=== PATIENT | male | born 1950 | race Caucasian/White ===

== ENCOUNTER → 2023-06-08 | Outpatient (CLI) | payer BC, MEDICARE ==
[~2023-06-08] MED LIST: IOHEXOL 350 MG/ML 100ML INFUS..BTL IV ONE; METOPROLOL TARTRATE 1 MG/ML 5ML VIAL IV ONE
== END | disposition home or self-care (01) ==
LOC: RAH 08:05
PROVIDERS: ATTEND Internal Medicine Cardiovascular Disease
DX: I73.9 Peripheral vascular disease, unspecified (principal); R06.09 Other forms of dyspnea; I25.10 Atherosclerotic heart disease of native coronary artery without angina pectoris
CPT/HCPCS: 75574; J3490; Q9967

== ENCOUNTER → 2023-07-21 | Outpatient (CLI) | payer BC, MEDICARE ==
[2023-07-21] MEDS: REGADENOSON 0.4 MG/5 ML PF SYG IVP ONE (14:40)
== END | disposition home or self-care (01) ==
LOC: SHCH 07-18 08:32
PROVIDERS: ATTEND Internal Medicine Cardiovascular Disease
DX: I25.10 Atherosclerotic heart disease of native coronary artery without angina pectoris (principal); I87.2 Venous insufficiency (chronic) (peripheral)
CPT/HCPCS: 78452; 96374; 93017; J2785; A9500 ×2

== ENCOUNTER → 2023-10-19 | Outpatient (CLI) | payer MEDICARE, BC ==
[~2023-10-19] VITALS: Ht 190.5 cm; Wt 104.6 kg
[~2023-10-19] MED LIST changes: +AEC81 PO; +ATOR40TA69 PO; +FLUT1BLS3 IH; -IOHEXOL 350 MG/ML 100ML INFUS..BTL IV ONE; +LISI10TA24 PO; -METOPROLOL TARTRATE 1 MG/ML 5ML VIAL IV ONE; +OXYC5TAB3 PO
[2023-10-19 14:10] LABS: BASOPHILS # (AUTO) 0.05 K/uL (0.00-0.20); BASOPHILS % (AUTO) 0.6 % (0.0-5.0); EOSINOPHILS % (AUTO) 2.3 % (0.0-8.0); HEMATOCRIT 29.2 % (42-54); IMMATURE GRANULOCYTE ABSOLUTE 0.03 K/uL (0-1); LYMPHOCYTES # (AUTO) 1.4 K/uL (1.0-4.8); LYMPHOCYTES % (AUTO) 16.5 % (21.0-51.0); MEAN CORPUSCULAR HEMOGLOBIN 25.5 pg (27.0-33.0); MEAN CORPUSCULAR HGB CONC 30.8 g/dL (32.0-36.0); MEAN CORPUSCULAR VOLUME 82.7 fL (79-99); MONOCYTES # (AUTO) 0.7 K/uL (0.1-1.0); NEUTROPHILS # (AUTO) 6.3 K/uL (1.8-7.7); NEUTROPHILS % (AUTO) 72.3 % (40.0-77.0); PLATELET COUNT (AUTO) 209 K/uL (130-400); RED BLOOD CELL COUNT(AUTO) 3.53 MIL/uL (4.50-6.20); RED CELL DISTRIBUTION WIDTH 16.1 % (11.0-15.5); WHITE BLOOD COUNT (AUTO) 8.7 K/uL (4.8-10.8)
[2023-10-19 14:12] VITALS: BP 119/64; PULSE 77; RESP 18; TEMP 98.6
[2023-10-19 14:23] LABS: INR 1.01 (0.85-1.15); PROTHROMBIN TIME 10.9 SEC (9.6-11.6)
[2023-10-19 14:24] LABS: PARTIAL THROMBOPLASTIN TIME 25.8 SEC (26.3-35.5)
[2023-10-19 14:26] LABS: APPEARANCE,URINE CLEAR (CLEAR); BILIRUBIN,URINE NEGATIVE (NEGATIVE); COLOR,URINE YELLOW (YELLOW); GLUCOSE, URINE (UA) NEGATIVE (NEGATIVE); KETONES,URINE 5 mg/dL (NEGATIVE); LEUKOCYTE ESTERASE ,URINE NEGATIVE Leu/uL (NEGATIVE); NITRATE,URINE NEGATIVE (NEGATIVE); OCCULT BLOOD,URINE NEGATIVE (NEGATIVE); PROTEIN,URINE 20 mg/dL (NEGATIVE)
[2023-10-19 14:29] LABS: CREATININE 0.8 mg/dL (0.5-1.3)
[2023-10-19 14:34] LABS: ADD UA MICROSCOPIC YES
[2023-10-19 14:38] LABS: MUCUS,URINE FEW LPF (None Seen)
[2023-10-19 14:44] LABS: B-TYPE NATRIURETIC PEPTIDE 35 pg/mL (0-100)
== END | disposition home or self-care (01) ==
LOC: DAH 10:00 → EDSTATUS 13:00
PROVIDERS: ATTEND Internal Medicine Cardiovascular Disease
DX: Z01.818 Encounter for other preprocedural examination (principal); I25.110 Atherosclerotic heart disease of native coronary artery with unstable angina pectoris; R06.02 Shortness of breath
CPT/HCPCS: 36415; 71045; 80048; 81001; 83880; 85025; 85610; 85730; 93005

== ENCOUNTER 2024-03-13 05:57 | Day surgery (SDC) | payer MEDICARE, BC ==
[2024-03-11 13:47] LABS: BASOPHILS # (AUTO) 0.06 K/uL (0.00-0.20); BASOPHILS % (AUTO) 0.8 % (0.0-5.0); EOSINOPHILS % (AUTO) 2.8 % (0.0-8.0); HEMATOCRIT 35.7 % (42-54); IMMATURE GRANULOCYTE ABSOLUTE 0.03 K/uL (0-1); LYMPHOCYTES # (AUTO) 1.2 K/uL (1.0-4.8); LYMPHOCYTES % (AUTO) 16.7 % (21.0-51.0); MEAN CORPUSCULAR HEMOGLOBIN 29.7 pg (27.0-33.0); MEAN CORPUSCULAR HGB CONC 32.5 g/dL (32.0-36.0); MEAN CORPUSCULAR VOLUME 91.5 fL (79-99); MONOCYTES # (AUTO) 0.6 K/uL (0.1-1.0); MONOCYTES % (AUTO) 8.5 % (3.0-13.0); NEUTROPHILS % (AUTO) 70.8 % (40.0-77.0); PLATELET COUNT (AUTO) 205 K/uL (130-400); WHITE BLOOD COUNT (AUTO) 7.1 K/uL (4.8-10.8)
[2024-03-11 13:57] LABS: CREATININE 0.9 mg/dL (0.5-1.3); POTASSIUM 4.6 mmol/L (3.5-5.1)
[2024-03-11 13:58] LABS: INR <= 0.93 (0.85-1.15); PROTHROMBIN TIME 10.5 SEC (9.6-11.6)
[2024-03-11 13:59] LABS: PARTIAL THROMBOPLASTIN TIME 26.8 SEC (26.3-35.5)
[2024-03-11 14:02] VITALS: BP 120/66; PULSE 72; RESP 18; TEMP 97.3
--- NOTE | 2024-03-11 14:18 | EKG ---
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
--- NOTE | 2024-03-11 15:18 | HMCIMG ---
CHEST 1VW REASON: R COMPARISON: 11/08/2023 FINDINGS: Single view of the chest was obtained. Lungs are clear. Heart size is normal. There is no pulmonary vascular congestion. Mediastinum and bony thorax appear unremarkable. IMPRESSION: 1. Normal single view chest x-ray.
[2024-03-13] VITALS (11 sets, daily range): BP systolic 113–130; BP diastolic 57–70; PULSE 57–77; RESP 9–22; TEMP 97.4–97.6
[~2024-03-13] VITALS: Ht 190.5 cm; Wt 101.8 kg
[~2024-03-13 05:57] MED LIST changes: +BORON PO; +FERR324T PO; -FLUT1BLS3 IH; +FOLIC ACID PO; +MAGN100T6 PO; +STOOL SOFTENER PO; +TAMS-1 PO; +VITAMIN C PO; +ZINC PO
[2024-03-13] MEDS: 0.9%NACL 1000ML 1,000 ML IV SCH (06:45)
[2024-03-13] MEDS ORDERED: LIDOCAINE HCL 400MG/20ML VIAL ONE (07:12)
[2024-03-13] MEDS ORDERED: HEParin 10,000 UNIT/10ML (1,000 UNIT/ML) VIAL ONE (07:12)
[2024-03-13] MEDS ORDERED: HEParin-NS 1,000 UNIT/500 ML 1,000 ML IV ONE (07:12)
[2024-03-13] MEDS ORDERED: IOHEXOL 350 MG/ML 100ML INFUS..BTL IV ONE (07:12)
[2024-03-13] MEDS ORDERED: NITROGLYCERIN 50MG VIAL ONE (07:13)
[2024-03-13] MEDS ORDERED: FENTanyl CITRate PF 50 MCG/1 ML 2ML VIAL ONE (07:33)
[2024-03-13] MEDS ORDERED: MIDAZOLAM HCL 1 MG/ML 2ML VIAL ONE (07:34)
[2024-03-13] MEDS ORDERED: HEParin-NS 1,000 UNIT/500 ML 500 ML IV ONE (07:44)
[2024-03-13] MEDS ORDERED: acetaMINOPHEN WITH coDEINE 1 TAB TAB PO PRN ×2 (08:30)
[2024-03-13] MEDS ORDERED: NITROGLYCERIN 0.4 MG SL TAB SL PRN (08:30)
[2024-03-13] MEDS ORDERED: DEXTROSE 50%-WATER 50 ML DISP.SYRIN IV PRN (08:30)
[2024-03-13] MEDS ORDERED: hydrALAZine 20MG/ML VIAL IV PRN (08:30)
[2024-03-13] MEDS ORDERED: 0.9%NACL 1000ML 1,000 ML IV SCH (08:30)
[2024-03-13] MEDS ORDERED: metoPROLOL tartRATE 1 MG/ML 5ML VIAL IV PRN (08:30)
[2024-03-13] MEDS ORDERED: GLUCAGON 1MG KIT 1 MG ML IM PRN (08:30)
--- NOTE | 2024-03-13 08:40 | PRN ---
Left Heart Cath-Sullivan PROCEDURE: 1. Right common femoral arterial sheath placement. 2. Selective coronary angiogram. 3. Left heart catheterization. 4. Left ventriculogram. 5. Right common femoral sheath placement, 7F 6. RHC with cardiac output measurements INDICATIONS: SEVERE ROMANO SOBOE CAD ANGINA DESCRIPTION OF PROCEDURE: The patient was brought to the catheterization suite and prepped and draped in sterile fashion. An IV was started, if not already in place and both groins were exposed for arterial access. 1% lidocaine was used for local anesthesia and then a micropuncture kit was used to gain access and once free-flowing blood was seen, modified Seldinger technique was utilized to place a 6 Mongolian sheath into the right common femoral artery. Same technique was utilized to place a 7 Mongolian sheath into the right common femoral vein. Next, preformed JL4 and JR4 Catheters were then used to selectively engage the modoc coronary vessels and multiple hand contrast injections were performed in different views to define the coronary anatomy. Next, a JR4 catheter was used to cross the aortic valve. Pressure measurements were obtained in the 30 GORDILLO position. Next pressure measurements were obtained in all said chambers and simultaneous pressure measurements were obtained as well of the left ventricle end-diastolic pressure and pulmonary capillary wedge pressure. Cardiac outputs were obtained. Next a left ventriculogram was done in with a hand injection. Next, pullback method was performed. At the end of the case, sheath was pulled using Perclose for arteriotomy site and Vascade for venous access site. No complications occurred. FINDINGS: The left main artery is calcified with no stenosis present and it trifurcates into the LAD, ramus intermediate, and left circumflex system. The left anterior descending artery and its diagonal branch system is free of any significant disease. The left circumflex artery is a codominant vessel and has a distal stenosis of 30-40% which is concentric and fashion before giving rise to the LPL. The left posterolateral branch is patent. The ramus intermediate is a large vessel bifurcates distally and has no stenosis present. The right coronary artery is a calcified vessel with a distal stenosis of 30- 40%. The PDA is patent. Left ventricular ejection fraction is greater than 70% LVEDP is at 20 mmHg Pulmonary capillary wedge pressure is 15 mmHg Peak to peak gradient is noted to be 42 mmHg Aortic valve area by Salome equation at 0.96 centimeter squared Cardiac output is 8.98 liters/minute RECOMMENDATIONS: No driving 24 hours No heavy lifting 5 lb or greater for 3 days Outpatient evaluation for TAVR versus minimally invasive aortic valve replacement AZIZA SULLIVAN MD Mar 13, 2024 08:40
--- NOTE | 2024-03-13 10:10 | NUR ---
URINARY: VOIDED 425 YELLOW COLOR URINE PER URINAL WITHOUT DIFFICULTY.
--- NOTE | 2024-03-13 10:15 | NUR ---
REPORT: NOTIFIED DR. AZIZA CONDE THAT SCHEDULING CAN'T SCHEDULE PT FOR PFT'S SOONER THAN 06/12
--- NOTE | 2024-03-13 10:20 | NUR ---
ACTIVITY: HOB ELEVATED 45 DEGREES WITH NO COMPLAINTS OF DIZZINESS.
== END 2024-03-13 13:30 | disposition home or self-care (01) ==
LOC: DAH 05:57
PROVIDERS: ATTEND Internal Medicine Cardiovascular Disease
DX: I35.0 Nonrheumatic aortic (valve) stenosis (principal); I25.119 Atherosclerotic heart disease of native coronary artery with unspecified angina pectoris; R94.39 Abnormal result of other cardiovascular function study; I11.0 Hypertensive heart disease with heart failure; I50.32 Chronic diastolic (congestive) heart failure; R06.02 Shortness of breath; E78.5 Hyperlipidemia, unspecified; I87.2 Venous insufficiency (chronic) (peripheral); E66.9 Obesity, unspecified; F10.90 Alcohol use, unspecified, uncomplicated; J44.9 Chronic obstructive pulmonary disease, unspecified; J45.909 Unspecified asthma, uncomplicated; F17.200 Nicotine dependence, unspecified, uncomplicated; Z79.899 Other long term (current) drug therapy; Z68.29 Body mass index [BMI] 29.0-29.9, adult; Z98.890 Other specified postprocedural states; Z79.82 Long term (current) use of aspirin; Z79.01 Long term (current) use of anticoagulants
CPT/HCPCS: 80048; 85025; 85610; 85730; 36415; 71045; 93005; 93460; A4223 ×3; Q9965; C1894 ×3; C1760 ×2; J3010; J3490 ×2; J7030; J1644 ×3; J2250; Q9967; A4215; A4222; A4221; A4663; A4216; A4606; 96360; 96361; 99156; 99157

== ENCOUNTER → 2024-04-26 | Outpatient (CLI) | payer MEDICARE, BC ==
[~2024-04-26] MED LIST changes: +IOHEXOL 350 MG/ML 100ML INFUS..BTL IV ONE; +IOHEXOL-350 50ML VIAL IV ONE
--- NOTE | 2024-04-26 14:11 | HMCIMG ---
Exam Type: CT angiogram, abdomen and pelvis with contrast Clinical Information: Nonrheumatic aortic (valve) stenosis Comparison: None CT Dose Index (CTDI): mGy Dose Length Product (DLP): total mGy-cm Contrast: 100 cc's Isovue 370 IV, no complications Technique: Routine helical scanning at 5mm collimation through the chest, abdomen and pelvis after contrast administration. In addition, sagittal and coronary formations of the chest, abdomen and pelvis and surface rendering three-dimensional reconstructions of the abdominal aorta were performed. Findings: FINDINGS: The aorta is unremarkable. No significant dilatation is noted. There is no occlusion. There is no dissection. No significant plaque formation is identified. There is calcification of the cata[place]ba aortic valve leaflets. The possibility of aortic stenosis at the level of the valve cannot be excluded. No actual stenosis of the aorta is seen otherwise. There is no evidence of pulmonary embolism. The thyroid gland is unremarkable. The airway is intact. The trachea and major bronchi are unremarkable. The chest exam shows no pulmonary nodules or masses. No significant pulmonary parenchymal abnormalities are noted. No pulmonary infiltrates or mass lesions are seen. No pleural effusions are identified. The nonenhanced exam of the stone and mediastinum is unremarkable. No evidence of hilar enlargement is seen. The aorta shows no aneurysmal dilatation or significant atheromatous calcification. No significant brachiocephalic vascular abnormalities are seen. The heart is unremarkable. It is not enlarged. No significant coronary arterial calcifications are seen. There is no pericardial effusion. The rib cage appears unremarkable. The soft tissues of the chest wall are unremarkable. The dorsal spine shows no significant abnormalities. No evidence of nephro or ureterolithiasis is found. No hydronephrosis or ureteral dilatation is seen. The stomach is unremarkable. It shows no wall thickening. No gross ulceration is seen. It is not overly distended. There are no surrounding inflammatory changes. No wall lesions are identified to suggest cancer. The spleen is unremarkable. It is not enlarged. The pancreas shows normal anatomy. It is not fatty replaced. It shows no lesions. The pancreatic duct is not dilated. There is evidence of cholelithiasis. No evidence of acute or chronic inflammation is seen. The adrenal glands are unremarkable. There is no enlargement. No lesions are noted. The liver is unremarkable. It shows no focal masses. The appendix is unremarkable. It shows no evidence of inflammation. No appendicolith is seen. The small bowel is unremarkable. There is no evidence of dilatation to suggest obstruction. No evidence of adynamic ileus is seen. There is no small bowel wall thickening to suggest enteritis. The colon is unremarkable. The urinary bladder is unremarkable. There is no wall thickening to suggest tumor or inflammation. There are no intraluminal calculi. There are no diverticula. There is no evidence of chronic bladder outlet obstruction. There is no evidence of urinary bladder distention to suggest urinary retention. The other pelvic structures are unremarkable. The bony and vascular structures are unremarkable for the patient's age. Impression: Normal appearance of the entire aorta. There is calcification of the catawba aortic valve leaflets. The possibility of aortic stenosis at the level of the valve cannot be excluded. No actual stenosis of the aorta is seen otherwise. Normal chest examination. Clear lungs. No pulmonary embolism. No infiltrates. No mediastinal lymphadenopathy. No acute abdominopelvic pathology. This study was performed using dose reduction techniques to include automated exposure control and/or adjustment of the mA and/or kV according to patient size.
== END | disposition home or self-care (01) ==
LOC: RAH 09:21
PROVIDERS: ATTEND Internal Medicine Cardiovascular Disease
DX: K80.20 Calculus of gallbladder without cholecystitis without obstruction (principal); I70.0 Atherosclerosis of aorta; I35.0 Nonrheumatic aortic (valve) stenosis
CPT/HCPCS: 74174; 75574; Q9967 ×2

== ENCOUNTER → 2024-05-08 | Outpatient (CLI) | payer MEDICARE, BC ==
[~2024-05-08] MED LIST changes: -IOHEXOL 350 MG/ML 100ML INFUS..BTL IV ONE; -IOHEXOL-350 50ML VIAL IV ONE
== END | disposition home or self-care (01) ==
LOC: SHCH 11:19
PROVIDERS: ATTEND Internal Medicine Cardiovascular Disease
DX: I08.3 Combined rheumatic disorders of mitral, aortic and tricuspid valves (principal); I25.10 Atherosclerotic heart disease of native coronary artery without angina pectoris
CPT/HCPCS: 93306

== ENCOUNTER → 2024-10-01 | Outpatient (CLI) | payer MEDICARE, BC ==
[~2024-10-01] MED LIST changes: -TAMS-1 PO; +TAMS-55 PO
--- NOTE | 2024-10-03 06:26 | HMCIMG ---
EXAM: CR Lumbar Spine, 3 views. CLINICAL HISTORY: Lumbar myelopathy. COMPARISON: None provided. FINDINGS: Mild osteopenia. Degenerative lateral syndesmophyte from L3-L4, through L5-S1 level, and multilevel severe degenerative facet arthropathy. Degenerative reduction in disc space at L3-L4, L4-L5, and L5-S1 levels, most prominent at the L4-L5 level. Moderate to severe narrowing of the neural foramina at the L4-L5 and L5-S1 levels. Normal vertebral body heights. No acute fracture. Soft tissues are within normal limits. Atherosclerotic calcification of the infrarenal aorta and common iliac arteries. IMPRESSION: No evidence of acute fracture or subluxation. Mild osteopenia. Degenerative lateral syndesmophyte from L3-L4, through L5-S1 level, and multilevel severe degenerative facet arthropathy. Degenerative reduction in disc space at L3-L4, L4-L5, and L5-S1 levels, most prominent at the L4-L5 level. Moderate to severe narrowing of the neural foramina at the L4-L5 and L5-S1 levels. /[place]
== END | disposition home or self-care (01) ==
LOC: RAH 15:55
PROVIDERS: ATTEND Internal Medicine
DX: M47.817 Spondylosis without myelopathy or radiculopathy, lumbosacral region (principal); M51.379 Other intervertebral disc degeneration, lumbosacral region without mention of lumbar back pain or lower extremity pain; M48.07 Spinal stenosis, lumbosacral region; I70.0 Atherosclerosis of aorta; M85.88 Other specified disorders of bone density and structure, other site; G95.9 Disease of spinal cord, unspecified
CPT/HCPCS: 72100